=== PATIENT | male | born 1965 | race African-American/Black ===

== ENCOUNTER 2017-10-17 06:02 | Emergency (ER) | payer OTHER ==
[2017-10-17] MEDS: DEXAMETHASONE 4 MG TABLET PO (06:34)
[2017-10-17] MEDS: IBUPROFEN 800 MG TABLET. PO (06:37)
[2017-10-17] MEDS ORDERED: IPRATRPIUM/ALBUTEROL 0.5/2.5MG 3 ML NEBU. NEB (06:45)
[2017-10-17 06:57] LABS: INFLUENZA A PATIENT NEGATIVE (NEGATIVE); INFLUENZA B PATIENT NEGATIVE (NEGATIVE); OBC FLU VALID
== END 2017-10-17 07:22 | disposition home or self-care (01) ==
LOC: ER 06:02
DX: J06.9 Acute upper respiratory infection, unspecified (principal); I10 Essential (primary) hypertension
CPT/HCPCS: 71046; 87804; 87804-59; 94640; 99285-25; J8540

== ENCOUNTER 2019-07-30 13:47 | Emergency (ER) | payer OTHER ==
[~2019-07-30] VITALS: Ht 177.8 cm; Wt 95.3 kg
[~2019-07-30 13:47] MED LIST: ALBU2.5V8 INH; AZIT250T PO
[2019-07-30 14:01] VITALS: BP 150/98
[2019-07-30] MEDS ORDERED: CEPH-264 PO (14:10)
[2019-07-30] MEDS ORDERED: TRIA15CR2 TP (14:10)
--- NOTE | 2019-07-30 14:11 | PHYS DOC ---
Past Medical History Past Medical History: Hypertension Past Surgical History: Other Additional Past Surgical Histo: R SHOULDER, R KNEE Alcohol Use: None Drug Use: None Adult General Chief Complaint Chief Complaint: INSECT BITE HPI HPI Patient is a 54 year old male who presents with 2 days of 3 different itchy insect bites on his right arm. Patient has two dime sized, hard, nondraining reddened bites to his right lateral upper forearm. He has 1 dimes sized reddened hard nondraining bites to the medial upper forearm. Patient states he has been itching them and now they are painful. Patient states he is unsure but thinks he was bitten by something in the house. Review of Systems Review of Systems Integument: Insect bites to right arm. Denies rash or skin lesions [] All other systems were reviewed and found to be within normal limits, except as documented in this note. Allergies Allergies Allergies Coded Allergies Type Severity Reaction Last Updated Verified No Known Drug Allergies 10/17/17 No Physical Exam Physical Exam Constitutional: Well developed, well nourished, no acute distress, non-toxic appearance. [] Skin: Warm, dry, 3 insect bites that have erythema to right forearm, no rash. [] Extremities: No tenderness, no cyanosis, no clubbing, ROM intact, no edema. [] Neurologic: Alert and oriented X 3, normal motor function, normal sensory function, no focal deficits noted. [] Psychologic: Affect normal, judgement normal, mood normal. [] Current Patient Data Vital Signs Vital Signs Date Time Temp Pulse Resp B/P (MAP) Pulse Ox O2 Delivery O2 Flow Rate FiO2 07/30/19 14:01 97.6 79 19 150/98 (115) 97 Room Air 97.6 EKG EKG [] Radiology/Procedures Radiology/Procedures [] Course & Med Decision Making Course & Med Decision Making No joint swelling or pain. Patient can move fully at elbow joint without complication. Denies fevers. No swelling to the extremity. Radial pulse strong and present. Cap refill < 3 seconds. Skin pink warm and dry. Dragon Disclaimer Dragon Disclaimer This electronic medical record was generated, in whole or in part, using a voice recognition dictation system. Departure Departure Impression: Primary Impression: Insect bite Additional Impression: Cellulitis Disposition: HOME, SELF-CARE Condition: STABLE Referrals: LUNA MANLEY (PCP) Patient Instructions: Insect Bite Additional Instructions: Follow up with primary care provider. Take medications as prescribed. Scripts Cephalexin (KEFLEX) 500 Mg Capsule 1 CAP PO TID for 7 Days, #21 CAP 0 Refills Prov: ALVARO RODRIGUES APRN 07/30/19 Triamcinolone Acetonide (TRIAMCINOLONE ACETONIDE 0.025% CREAM) 15 Gm Cream..g. 1 DONG TP BID, #15 GM Prov: ALVARO RODRIGUES APRN 07/30/19 Problem Qualifiers Primary Impression: Insect bite Encounter type: initial encounter Site of insect bite: forearm Laterality: right Qualified Codes: S50.861A - Insect bite (nonvenomous) of right forearm, initial encounter; W57.XXXA - Bitten or stung by nonvenomous insect and other nonvenomous arthropods, initial encounter Additional Impression: Cellulitis Site of cellulitis: extremity Site of cellulitis of extremity: upper extremity Laterality: right Qualified Codes: L03.113 - Cellulitis of right upper limb ALVARO RODRIGUES APRN Jul 30, 2019 14:11
== END 2019-07-30 14:23 | disposition home or self-care (01) ==
LOC: ER 13:47
DX: S50.861A Insect bite (nonvenomous) of right forearm, initial encounter (principal); L03.113 Cellulitis of right upper limb; I10 Essential (primary) hypertension; W57.XXXA Bitten or stung by nonvenomous insect and other nonvenomous arthropods, initial encounter; Y93.89 Activity, other specified; Y92.89 Other specified places as the place of occurrence of the external cause; Y99.8 Other external cause status
CPT/HCPCS: 99283

== ENCOUNTER → 2022-02-10 | Outpatient (CLI) | payer OTHER ==
[~2022-02-10] MED LIST changes: +CEPH-264 PO; +GADOTERATE 7.5 MMOL/15ML VIAL. INT ART ONE; +IOHEXOL 300 MG/ML 100ML VIAL. INT ART ONE; +LIDOCAINE 1% Multi-Dose 20 ML VIAL. ID ONE; +TRIA15CR2 TP
--- NOTE | 2022-02-10 12:45 | KCIC ---
EXAM: Left shoulder joint injection WITH Fluoroscopic guidance DATE: 02/10/2022 10:50 AM CLINICAL HISTORY: Reason: CHRONIC TIGHTNESS/PAIN LT SHOULDER BEGAN AFTER DUTIES / COMPARISON: None pertinent TECHNIQUE: The patient was informed of the indications and alternatives for this procedure as well as risks and benefits. No immediate contraindication identified. The patient provided informed, written consent. Laterality was confirmed by the entire team following a time out. Following initial Left shoulder joint localization, a suitable area was sterilely prepped and draped. Local anesthesia was administered with 1% xylocaine. With intermittent fluoroscopic observation, a 2 2-gauge spinal needle was advanced into the Left shoulder joint sheath/capsule with confirmation of i ntra-synovial position with infusion of less than 1 cc iodinated contrast. Subsequent infusion 12 mL solution containing 10 cc saline, 10 cc Isovue and 0.1 cc gadolinium . Hemostasis with local pressure . Local clinical exam negative for immediate complication. Patient informed re local potential signs or symptoms that may indicate need to return to ER/Ordering physician for further evaluation. Patient informed re precautionary measures after intra-synovial in jection of anesthetic. Patient expressed understanding. Performing Physicians: Dr. Vicki Gao Blood Loss: 0 cc Total Fluoroscopy time: 8 seconds Total spot images taken: 0 IMPRESSION: Successful intra-synovial injection Left shoulder joint with gadolinium contrast pre-MRI per clinical request. Electronically signed by: Agustin Gao MD (02/10/2022 12:43 PM) [id number]
--- NOTE | 2022-02-10 20:01 | KCIC ---
EXAM: MRI arthrogram left shoulder DATE: 02/10/2022 12:00 PM COMPARISON: None INDICATION: Reason: LEFT SHOULDER PAIN / Spl. Instructions: / History: CHRONIC TIGHTNESS/PAIN LT JOSE STEWART BEGAN AFTER DUTIES TECHNIQUE: Multiplanar, multisequence MRI arthrogram of the left shoulder was performed following the administration of intra-articular gadolinium contrast. FINDINGS: Iatrogenic distention of the left glenohumeral joint with gadolinium contrast. AC joint is congruent. Mild lateral downsloping of the distal acromion. No os acromiale. Small left shoulder joint effusion. Subacromial-subdeltoid bursal edema, bursitis. Mild signal changes within the subscapularis likely iatrogenic. No rotator cuff tear. Rotator cuff mu scle signal and bulk is normal without fatty atrophy. Labrum is intact. Long head biceps tendon is intact. No acute fracture or osteonecrosis. Articular cartilage is grossly preserved. IMPRESSION: 1. No definite labral tear is seen. 2. Subacromial-subdeltoid bursal edema, bursitis. 3. Mild AC joint DJD. Electronically signed by: Agustin Gao MD (02/10/2022 7:59 PM) [facility]
== END | disposition home or self-care (01) ==
LOC: KCIC 10:34
PROVIDERS: ATTEND Family Medicine
DX: M25.512 Pain in left shoulder (principal); M19.012 Primary osteoarthritis, left shoulder; M25.412 Effusion, left shoulder; Z79.899 Other long term (current) drug therapy; Z72.89 Other problems related to lifestyle
CPT/HCPCS: 23350; 73222; 77002; A9575; J3490; Q9967